=== PATIENT | male | born 1975 | race African-American/Black ===

== ENCOUNTER 2018-03-08 13:28 | Emergency (ER) | payer BC, OTHER ==
--- NOTE | 2018-03-08 13:53 | PDOC ---
Attending Attestation - Resident Resident Name: Brie Rhodes - ED Attending Attestation I have performed the following: I have examined & evaluated the patient, The case was reviewed & discussed with the resident, I agree w/resident's findings & plan, Exceptions are as noted - HPI HPI: 03/08/18 13:50 42 year old male c/ pmh HLD, GERD p/w lower back spasm. Two days ago, was lifting objects and twisting body. Afterwards started to note back spasm worse with movement. Denies fevers, chills, numbness, weakness, urinary or bowel incontinence. Pt came into the ER for an evaluation. - Physicial Exam PE: 03/08/18 13:51 GENERAL: Awake, alert, and fully oriented, in no acute distress HEAD: No signs of trauma EYES: EOMI, sclera anicteric, conjunctiva clear ENT: Auricles normal inspection, hearing grossly normal, nares patentMoist mucosa NECK: Normal ROM, supple BACK: No spinal tenderness or stepoffs. Mild discomfort on left lower back on palpation. EXTREMITIES: Normal range of motion, no edema. No clubbing or cyanosis. No cords, erythema, or tenderness NEUROLOGICAL: Cranial nerves II through XII grossly intact. Normal speech, normal gait SKIN: Warm, Dry, normal turgor, no rashes or lesions noted. - Medical Decision Making 03/08/18 13:52 Vital Signs Temp Pulse Resp BP Pulse Ox 98.6 F 70 16 133/81 98 03/08/18 13:34 03/08/18 13:34 03/08/18 13:34 03/08/18 13:34 03/08/18 13:34 Likely muscle spasm. Pt is requesting only oral medications. Naproxen 500 mg BID PRN 10 mg flexeril q8h PRN Heat Packs, Activity as tolerated. Supportive care Follow up with PMD
[2018-03-08] MEDS ORDERED: NAPROXEN 500 MG TABLET (FP) PO ONE (13:54)
[2018-03-08] MEDS ORDERED: NAPROXEN 500 MG TABLET (FP) ONE (13:57)
--- NOTE | 2018-03-08 13:57 | PDOC ---
History of Present Illness - General Chief Complaint: Back Pain Stated Complaint: LEFT LOWER BACK PAIN Time Seen by Provider: 03/08/18 13:34 History Source: Patient Exam Limitations: No Limitations - History of Present Illness Initial Comments: 03/08/18 13:50 42 year old male with PMH GERD, HLD presents to ED complaining of left lower back pain x2 days. He states he has been moving a lot of boxes at work lately, was doing a twisting motion on Thursday when his back pain began. He states his pain is better laying flat or standing straight up, worse when sitting or bending his back. He denies diabetes, IV drug use, spinal injections, fever, chills, urinary incontinence, bowel incontinence, dysuria, flank pain, hematuria , abdominal pain. PCP - Dr. Navarrete Past History - Past Medical History Allergies/Adverse Reactions: Allergies Allergy/AdvReac Type Severity Reaction Status Date / Time No Known Drug Allergies Allergy Verified 01/03/14 11:07 SHRIMP Allergy Mild Itching Uncoded 01/03/14 11:07 Home Medications: Ambulatory Orders Cetirizine HCl [Zyrtec -] 10 mg PO DAILY 03/08/18 Cyclobenzaprine HCl [Flexeril 10 mg] 10 mg PO TID 7 Days #21 tablet 03/08/18 Naproxen 500 mg PO BID 10 Days #20 tablet 03/08/18 Anemia: No Asthma: No Cancer: No Cardiac Disorders: No CVA: No COPD: No CHF: No Dementia: No Diabetes: No GI Disorders: Yes (GERD) Disorders: No HTN: No Hypercholesterolemia: Yes Liver Disease: No Seizures: No Thyroid Disease: No - Surgical History Abdominal Surgery: No Appendectomy: Yes (1987) Cardiac Surgery: No Cholecystectomy: No Gastric Stapling: Yes (LAP BAND) Lung Surgery: No Neurologic Surgery: No Orthopedic Surgery: No - Immunization History Immunization Up to Date: Yes - Suicide/Smoking/Psychosocial Hx Smoking Status: No Smoking History: Never smoked Number of Cigarettes Smoked Daily: 0 Hx Alcohol Use: No Drug/Substance Use Hx: No Substance Use Type: None Hx Substance Use Treatment: No Review of Systems - Review of Systems Able to Perform ROS?: Yes Comments:: 03/08/18 13:53 General: denies fever, chills, night sweats, generalized weakness. HEENT: denies sore throat, rhinorrhea, ear pain. Heart: denies chest pain, palpitations, syncope, lower extremity swelling. Respiratory: denies shortness of breath, cough, sputum production, hematemesis. Abdomen: denies abdominal pain, nausea, vomiting, diarrhea, constipation, blood in stool. : denies dysuria, urinary frequency, hematuria, urinary incontinence. Back: admits to back pain. denies flank pain. Musculoskeletal: denies joint pain, muscle pain, joint swelling. Neurological: denies headache, dizziness, numbness, tingling, weakness. Skin: denies rash, laceration, abrasion. *Physical Exam - Vital Signs Last Vital Signs Temp Pulse Resp BP Pulse Ox 98.6 F 70 16 133/81 98 03/08/18 13:34 03/08/18 13:34 03/08/18 13:34 03/08/18 13:34 03/08/18 13:34 - Physical Exam Comments: 03/08/18 13:53 Appearance: comfortable. HEENT: head is normocephalic, atraumatic. EOMI. PERRLA. Neck: supple. Full ROM. Heart: regular rhythm. no murmurs, rubs or gallops. Lungs: clear to auscultation bilaterally. no crackles, rhonchi or wheezing. no stridor. Abdomen: soft, nontender. normal bowel sounds. no rebound, guarding, masses. Back: no CVA tenderness. no tenderness to palpation of midline c-spine, t-spine or l-spine. no tenderness to palpation of left lower back. muscle spasm felt at left lower back. Extremities: Peripheral pulses intact. No lower extremity edema. Neurological: Alert. Oriented x3. CN2-12 intact. 4/5 strength left lower extremity secondary to pain. 5/5 strength all other extremities. Full sensation all extremities and bilateral face. Romberg negative. Finger to nose normal. Gait normal. Medical Decision Making - Medical Decision Making 03/08/18 13:55 42 year old male with PMH GERD, HLD presents to ED complaining of back pain x2 days after moving boxes. No systemic symptoms. Denies diabetes, IV drug use, bowel or bladder incontinence, spinal injections, malignancy. Initial Vital Signs Temp Pulse Resp BP Pulse Ox 98.6 F 70 16 133/81 98 03/08/18 13:34 03/08/18 13:34 03/08/18 13:34 03/08/18 13:34 03/08/18 13:34 Afebrile. No hypotension. No hypoxia. Mechanical back pain likely. Naproxen for pain. Pt refused IM Toradol. Pt will be discharged with prescriptions for Naproxen and Flexeril, instructions to follow up with PCP, and strict return precautions. *DC/Admit/Observation/Transfer Diagnosis at time of Disposition: Back pain - Discharge Dispostion Disposition: HOME Condition at time of disposition: Good Decision to Admit order: No - Prescriptions Prescriptions: Cyclobenzaprine HCl [Flexeril 10 mg] 10 mg PO TID 7 Days #21 tablet Naproxen 500 mg PO BID 10 Days #20 tablet - Referrals Referrals: Cristiane Bonner MD [Primary Care Provider] - - Patient Instructions Printed Discharge Instructions: DI for Low Back Pain Additional Instructions: You were seen today for back pain. You were given Naproxen 500 mg, which is an anti-inflammatory medication, it will last 12 hours. I have written a prescription for Naproxen (an anti-inflammatory), and sent it to your pharmacy, please take it every 12 hours. I have written a prescription for Flexeril (a muscle relaxant), and sent it to your pharmacy, please take it every 8 hours. Do not take both ibuprofen and naproxen at the same time. Stay hydrated, drink water. Rest the affected area, no strenuous exercise for 1-2 weeks, or until the pain has subsided. No heavy lifting for 1-2 weeks, or until the pain has subsided. Please follow up with your primary care physician within 5 days, and bring the paperwork given to you today with you. Please return to the Emergency Department if you develop fever, nausea, vomiting , burning with urination, increasing pain, weakness or numbness, urinary or bowel incontinence. Please return to the Emergency Department for any new, worsening or concerning symptoms. - Post Discharge Activity Forms/Work/School Notes: Back to Work
[2018-03-08 14:01] VITALS: BP 133/81; PULSE 70; TEMP 98.6; BMI 38.3
== END 2018-03-08 14:13 | disposition home or self-care (01) ==
LOC: FER 13:28
DX: M54.5 Low back pain (principal); E78.5 Hyperlipidemia, unspecified; K21.9 Gastro-esophageal reflux disease without esophagitis; Z91.013 Allergy to seafood; Z98.84 Bariatric surgery status
CPT/HCPCS: 99282-25

== ENCOUNTER 2018-12-19 10:16 | Emergency (ER) | payer BC, OTHER ==
--- NOTE | 2018-12-19 10:26 | PDOC ---
History of Present Illness - General Chief Complaint: Sore Throat Stated Complaint: SORE THROAT 2 DAYS Time Seen by Provider: 12/19/18 10:26 History Source: Patient Exam Limitations: No Limitations - History of Present Illness Initial Comments: 12/19/18 10:44 HPI 43 YOM with history of GERD and deviated septum/nasal polyps, seasonal allergies presenting with sore throat x 1 day. He started experiencing yesterday left sided neck pain, sore throat and difficulty/painful swallowing. Able to tolerate liquids and solids. He admits to post nasal drip and seasonal allergies, nasal polyps and deviated septum without corrective surgery yet. Has been taking zyrtec daily for allergies. He has tried salt water gargles and warm water, without much relief. Denies fever, chills, visual or hearing changes, chest pain, SOB, palpitation, dizziness, weakness, N, V, D, abdominal pain, rash, He has been with his 2 sons x 1 week, one of which had been feeling under the weather with cough, but otherwise no significant symptoms. No travel. No new changes in medications. No suspicious food intake Allergies: shellfish Past Medical History: as documented in EMR/HPI Social history: Lives with family. No tobacco, ETOH or drug use. Surgical history: appendectomy Meds: as documented in EMR PMD: Kailey Past History - Past Medical History Allergies/Adverse Reactions: Allergies Allergy/AdvReac Type Severity Reaction Status Date / Time No Known Drug Allergies Allergy Mild Verified 12/19/18 10:18 SHRIMP Allergy Mild Itching Uncoded 12/19/18 10:18 Home Medications: Ambulatory Orders Cetirizine HCl [Zyrtec -] 10 mg PO DAILY 03/08/18 Anemia: No Asthma: No Cancer: No Cardiac Disorders: No CVA: No COPD: No CHF: No Dementia: No Diabetes: No GI Disorders: Yes (GERD) Disorders: No HTN: No Hypercholesterolemia: Yes Liver Disease: No Seizures: No Thyroid Disease: No Other medical history: NASAL POLYPS - Surgical History Abdominal Surgery: No Appendectomy: Yes (1987) Cardiac Surgery: No Cholecystectomy: No Gastric Stapling: Yes (LAP BAND) Lung Surgery: No Neurologic Surgery: No Orthopedic Surgery: No - Immunization History Immunization Up to Date: Yes - Suicide/Smoking/Psychosocial Hx Smoking Status: No Smoking History: Never smoked Number of Cigarettes Smoked Daily: 0 Information on smoking cessation initiated: No Hx Alcohol Use: No Drug/Substance Use Hx: No Substance Use Type: None Hx Substance Use Treatment: No Review of Systems - Review of Systems Able to Perform ROS?: Yes Comments:: 12/19/18 10:44 Review of systems Constitutional: no fevers or chills. HEENT: no headache or dizziness. No congestion. No eye pain or redness. No visual/hearing disturbances. +sore throat, +post nasal drip. +odynophagia. CVS: no cp or syncope. Resp: no sob. No cough. Gastrointestinal: no abdominal pain, nausea or vomiting. MUSCULOSKELETAL: No joint pain and swelling. No neck or back pain. SKIN: no redness or skin changes, no discharge, no rash. No wounds. Hematologic: no easy bruising/bleeding. NEUROLOGIC: No headache, dizziness, LOC or altered mental status. No weakness, numbness or tingling. Allergic/Immunologic: +seasonal allergies All other systems reviewed and negative, or as documented in HPI. *Physical Exam - Vital Signs Last Vital Signs Temp Pulse Resp BP Pulse Ox 98.8 F 95 H 16 132/85 98 12/19/18 10:17 12/19/18 10:17 12/19/18 10:17 12/19/18 10:17 12/19/18 10:17 - Physical Exam Comments: 12/19/18 10:45 Physical exam: General: Well appearing, awake and alert, NAD. HEENT: NCAT, PERRL, EOMI, clear conjunctiva, anicteric, moist mucus membranes, dentition normal, no lesions on buccal mucosa. +left soft palate erythema, no exudates. +post nasal drip in posterior oropharynx. Airway patent, normal phonation. Uvula midline. No sinus tenderness, TM clear, no pinna tenderness to manipulation. Neck: neck supple, FROM, no meningismus. +left anterior cervical tenderness, no LAD Resp: CTAB, normal and even respirations, no respiratory distress CVS: RRR, no murmurs, 2+ peripheral pulses throughout, no peripheral edema Abdomen: soft, NTND, no peritoneal signs. Back: nontender, normal inspection and ROM MSK: no edema, WOLF x4, ROM intact. Neuro: alert Skin: warm and well perfused, cap refill <2 sec, normal color Medical Decision Making - Medical Decision Making 12/19/18 10:45 VS reviewed, wnl. no fever, nontoxic. no meningeal signs no systemic toxicity. airway patent, no e/o deep space infection or obstruction. no respiratory distress. analgesia with ibuprofen and dexamethasone strep _neg, f/u cultures. likely PND from allergies vs early viral course supportive care, salt water gargles, hydration and otc analgesia. Pt to be discharged in stable condition. Patient made aware of impression and plan, return precautions discussed (including but not limited to worsening pain or symptoms), fevers, or signs of infection, chest pain, respiratory distress, inability to tolerate oral intake, dehydration, syncope, or neurologic changes) . Follow up with PMD as recommended, follow up information provided, take medications as instructed for duration of time. continue with supportive care, avoid triggers and precipitants. All questions answered to patient's satisfaction and expressed understanding and comfort with this. Patient does not suffer from an acute life-threatening medical condition at this time and is safe for outpatient follow-up. 12/19/18 11:04 *DC/Admit/Observation/Transfer Diagnosis at time of Disposition: Sore throat, Seasonal allergies - Discharge Dispostion Disposition: HOME Condition at time of disposition: Stable Decision to Admit order: No - Referrals Referrals: Cristiane Bonner MD [Primary Care Provider] - - Patient Instructions Printed Discharge Instructions: Sore Throat Additional Instructions: this could be sore throat from post nasal drip from allergies or an early viral infection, which is all treated supportively. salt water gargles and warm lemon tea is appropriate as well for soothing qualities for sore throat/cough/post nasal drip. minimize spread of any possible infection given contagious nature, and cover your mouth and wash your hands adequately with soap and water. Stay well hydrated and rest. Cool air - walk around outdoors in the evening. May also try hot shower steam. This can alleviate the throat discomfort and allergy symptoms. keep taking your zyrtec you received oral steroids which should help with your throat discomfort and inflammation. Please take IBUPROFEN (aka MOTRIN, ADVIL, ALEVE) 400 mg and/or ACETAMINOPHEN ( aka Tylenol) 650-975 mg every 6 hours, as needed, for pain. Please do not take these medications if you have a bleeding disorder, stomach or GI ulcer problems or liver disease. - Post Discharge Activity
[2018-12-19 10:33] VITALS: BP 132/85; PULSE 95; TEMP 98.8; BMI 36.5
[2018-12-19] MEDS ORDERED: DEXAMETHASONE 4 MG TABLET (FP) PO ONE (10:37)
[2018-12-19] MEDS ORDERED: IBUPROFEN 600 MG TABLET (FP) PO ONE ×2 (10:37→10:42)
[2018-12-19] MEDS ORDERED: DEXAMETHASONE 4 MG TABLET (FP) ONE (10:42)
== END 2018-12-19 11:18 | disposition home or self-care (01) ==
LOC: FER 10:16
DX: J30.2 Other seasonal allergic rhinitis (principal); J02.9 Acute pharyngitis, unspecified; K21.9 Gastro-esophageal reflux disease without esophagitis; E78.00 Pure hypercholesterolemia, unspecified; Z98.84 Bariatric surgery status
CPT/HCPCS: 87070; 87880; 99281-25

== ENCOUNTER 2020-02-12 11:59 | Emergency (ER) | payer BC, OTHER ==
[2020-02-12 12:06] VITALS: BP 137/98; PULSE 94; TEMP 98.2; BMI 37.7
--- NOTE | 2020-02-12 12:06 | PDOC ---
History of Present Illness - General Chief Complaint: Pain Stated Complaint: RIGHT ANKLE PAIN Time Seen by Provider: 02/12/20 12:01 History Source: Patient Exam Limitations: No Limitations - History of Present Illness Initial Comments: 02/12/20 12:02 44 y/o male with right ankle pain for a few days, mild swelling and bruising. Patient denies fall or trauma but wants it checked out. No SOB. Treated for COVID in November, developed blood clots in right leg and lungs. Currently on Eliquis. No calf pain. Is this a multiple visit Asthma Patient?: No Past History - Medical History Allergies/Adverse Reactions: Allergies Allergy/AdvReac Type Severity Reaction Status Date / Time shellfish derived Allergy Verified 02/12/20 12:06 shrimp Allergy Verified 02/12/20 12:00 Home Medications: Ambulatory Orders Apixaban [Eliquis] 5 mg PO BID 02/12/20 Anemia: No Asthma: No Cancer: No Cardiac Disorders: No CVA: No COPD: No CHF: No Dementia: No Diabetes: No GI Disorders: Yes (GERD) Disorders: No HTN: No Hypercholesterolemia: Yes Liver Disease: No Seizures: No Thyroid Disease: No - Surgical History Abdominal Surgery: No Appendectomy: Yes (1987) Cardiac Surgery: No Cholecystectomy: No Gastric Stapling: Yes (LAP BAND) Lung Surgery: No Neurologic Surgery: No Orthopedic Surgery: No - Immunization History Immunization Up to Date: Yes - Psycho-Social/Smoking History Smoking Status: No Smoking History: Never smoked Number of Cigarettes Smoked Daily: 0 Review of Systems - Review of Systems Able to Perform ROS?: Yes Is the patient limited Polish proficient: No Constitutional: No: Chills, Fever Respiratory: No: Cough, Shortness of Breath Cardiac (ROS): No: Chest Pain Musculoskeletal: Yes: Joint Pain. No: Muscle Pain All Other Systems: Reviewed and Negative *Physical Exam - Physical Exam General Appearance: Yes: Nourished, Appropriately Dressed. No: Apparent Distress HEENT: positive: EOMI, MINI, Normal ENT Inspection Neck: positive: Trachea midline, Normal Thyroid, Supple. negative: Tender, Rigid Respiratory/Chest: positive: Lungs Clear, Normal Breath Sounds. negative: Chest Tender, Respiratory Distress Cardiovascular: positive: Regular Rhythm, Regular Rate, S1, S2. negative: Edema, JVD, Murmur Vascular Pulses: Femoral (R): 4+, Femoral (L): 4+, Carotid (R): 4+, Carotid (L): 4+, Dorsalis-Pedis (R): 4+, Doralis-Pedis (L): 4+ Lymphatic: negative: Adenopathy, Tenderness, Other Musculoskeletal: positive: Normal Inspection. negative: CVA Tenderness Extremity: positive: Normal Capillary Refill. negative: Normal Inspection (right medical ankle with swelling adn mild ecchymosis no tenderness, full ROM, able to ambulate, pulses 2+/4 b/l in LE, no focal deficits no calf tenderness b/l), Calf Tenderness Integumentary: positive: Normal Color, Dry, Warm Neurologic: positive: adaptive physical educator II-XII NML intact, Fully Oriented, Alert, Normal Mood/Affect, Normal Response, Motor Strength 5/ ED Treatment Course - ADDITIONAL ORDERS Additional order review: 02/12/20 12:05 Right medical ankle pain No sign of DVT, already on Eliquis Will obtain x-ray Pt in agreement with plan 02/12/20 12:27 X-ray right ankle: no fracture seen - RADIOLOGY Radiology Studies Ordered: Category Date Time Status ANKLE-RIGHT [RAD] Stat Radiology 02/12/20 12:01 Ordered Discharge - Discharge Information Problems reviewed: Yes Clinical Impression/Diagnosis: Ankle sprain Qualifiers: Encounter type: initial encounter Involved ligament of ankle: unspecified ligament Laterality: right Qualified Code(s): S93.401A - Sprain of unspecified ligament of right ankle, initial encounter Condition: Stable Disposition: HOME - Admission No - Follow up/Referral Referrals: Cristiane Bonner MD [Primary Care Provider] - - Patient Discharge Instructions Patient Printed Discharge Instructions: DI for Ankle Sprain Additional Instructions: Ice, Tylenol, rest Elevate If worsen return for further imaging study, possible US - Post Discharge Activity
== END 2020-02-12 12:30 | disposition home or self-care (01) ==
LOC: FER 11:59
DX: S93.401A Sprain of unspecified ligament of right ankle, initial encounter (principal)
CPT/HCPCS: 73610-TC-RT-FY; 99284-25

== ENCOUNTER 2020-05-13 12:40 | Emergency (ER) | payer BC, OTHER ==
--- NOTE | 2020-05-13 12:46 | PDOC ---
Attending Attestation - Resident Resident Name: Suzie Meza - ED Attending Attestation I have performed the following: I have examined & evaluated the patient, The case was reviewed & discussed with the resident, I agree w/resident's findings & plan, Exceptions are as noted - HPI HPI: 05/13/20 13:33 45yo male with hx of gerd, hld, nasal polyps, and sciatica and lbp presents for eval of R low back pain that radiates down his R leg. States he has had the pain for about a week. No trauma. No heavy lifting. States he is unsure what set him off. Has been taking tylenol at home without relief along with doing his back stretches. Pt denies red flags: no weakness, no paresthesias, no loss of control of bowel or bladder, no saddle paresthesias. No fevers/chills. No injections. No hx of ivda. States his back flares up about once a year. Denies all other complaints. Ambulated into the ER with a steady gait. - Physicial Exam PE: 05/13/20 13:37 Gen: aaox3, nad heart: +s1s2 reg lungs: cta b/l abd: soft, nt/nd +bs back: no midline c/t/l spine ttp, no stepoffs or deformities, R paraspinal lumbar ttp, ambulates with a steady gait and on toes/heels, sensation intact, pulses intact, +straight leg raise on the RLE ext: no c/c/e, FROM of the knees and hips, muscle strength 5/5 UE and LE, sensation intact, pulses intact - Medical Decision Making 05/13/20 13:41 a/p: 45yo male with hx of sciatica and herniated discs in the lumbar spine with R lbp down the R leg -no paresthesias -no red flags -no fevers, midline pain, ivda hx, weakness, or signs/symptoms of caude equina -will medicate with toradol, robaxin -will monitor and reassess 05/13/20 13:57 pt states still with pain, will add prednisone and lidoderm patch 05/13/20 14:02 pt ambulatory in the Er discussed that it may take more than 1 dose of meds will dc on steroids, anti-inflamm, muscle relaxers -will dc with neurosx and pmd follow up for further eval of his LBP stable for dc to home Discharge - Discharge Information Problems reviewed: Yes Clinical Impression/Diagnosis: Lower back pain Condition: Stable Disposition: HOME - Admission No - Additional Discharge Information Prescriptions: Ibuprofen [Motrin -] 600 mg PO TID PRN #15 tablet PRN Reason: Pain Prednisone [Prednisone 50 MG TABLETS] 50 mg PO DAILY #4 tablet Methocarbamol [Robaxin -] 500 mg PO BID #6 tablet - Follow up/Referral Referrals: Cristiane Bonner MD [Primary Care Provider] - - Patient Discharge Instructions Patient Printed Discharge Instructions: DI for Low Back Pain, DI for Sciatica, DI for Back Pain With Sciatica Additional Instructions: You were seen in the ED today for lower back and sciatic pain. We gave you Toradol and Robaxin for your pain. Home Care: - You may use over the counter medications as needed for pain at home. 650- 1000mg acetaminophen (Tylenol) or 600mg ibuprofen (Motrin or Advil) can be used every 6-8 hours. If needed for continued pain, these medications may be alternated every 3-4 hours. For example, if you take ibuprofen at 9am, you may take acetaminophen at noon, ibuprofen at 3pm, etc. - It is strongly recommended that you take ibuprofen with food to help prevent stomach irritation. If you are taking it for more than a day or two, you may consider taking an acid medication such as Pepcid, available over the counter, to protect your stomach. This should be taken first thing in the morning 30-60 minutes before any food or medications. - You may buy a numbing patch that contains lidocaine (the patch is 4% lidocaine) that can be placed over the areas of greatest pain. The lidocaine patch may be placed for 12 hours then removed for 12 hours. - Try using an ice pack for 20 minutes every hour or a heating pad for additional pain control. These should NOT be used over the lidocaine patch, but you may place them over the areas of pain while the patch is off. Return to the ED with any new or worsening symptoms Return if: You have trouble holding back your urine or bowel movements. You have weakness in both legs. You have numbness in your groin or buttocks. - Post Discharge Activity
--- NOTE | 2020-05-13 12:46 | PDOC ---
History of Present Illness - General Chief Complaint: Back Pain Stated Complaint: SCIATICA Time Seen by Provider: 05/13/20 12:45 - History of Present Illness Initial Comments: 05/13/20 12:45 HPI: This is a 45 y/o male with a PMH of lumbar disk herniations and PE's on Eliquis presenting to the ED due to one week of sharp pain shooting down his right leg. He denies any inciting incident, and states this is typical of his sciatic pain which he has about once a year. He usually manages it with tylenol and stretching and says it usually goes away in a few days. He's coming in today because the pain started getting better and is now getting worse again. He tried tylenol at home which didn't help. Denies urinary incontinence, trouble walking, numbness or tingling in his lower extremities, weakness, fever or drug use. ROS: GENERAL/CONSTITUTIONAL: No fever/chills or weakness. HEENT: No change in vision. No ear pain. No sore throat. CARDIOVASCULAR: No chest pain, palpitations RESPIRATORY: No shortness of breath, dyspnea with exertion GASTROINTESTINAL: No abdominal pain, diarrhea or constipation. GENITOURINARY: No dysuria, frequency, or change in urination. MUSCULOSKELETAL: R. lower back pain radiating down right leg SKIN: No rash or hives NEUROLOGIC: No focal weakness, loss of consciousness, or change in strength/sensation. ENDOCRINE: No increased thirst. No unexplained weight loss. HEMATOLOGIC/LYMPHATIC: No anemia, easy bleeding, Yes history of blood clots PMH: PE's on eliquis, HLD, herniated disks PSx: Denied Social Hx: Denied IV drug use Meds: See nurse note Allergies: See nurse note PE: GENERAL: Awake, alert, and fully oriented, in no acute distress. Sitting in bed. HEAD: Normocephalic, atraumatic. NECK: Normal ROM and supple. CARDIOVASCULAR: Regular rate and rhythm, normal S1 and S2, no murmurs, rubs or gallops PULMONARY: No respiratory distress. Breath sounds equal, clear to auscultation bilaterally. ABDOMEN: Soft, nontender EXTREMITIES: Radicular sharp R. leg pain reproducible with leg raise. BACK: No tenderness to palpation in lumbar spine. Mild tenderness to palpation of R. paraspinal muscles. NEUROLOGICAL: Cranial nerves II through XII grossly intact. Normal speech, normal gait. Strength and sensation intact in bilateral lower extremities. SKIN: Warm, Dry, normal turgor, no rashes or lesions noted. Normal capillary refill. MDM: 05/13/20 13:04 This is a 45 y/o male with a PMH of lumbar disk herniations and PE's on Eliquuis presenting to the ED due to one week of sharp pain shooting down his right leg. - Typical sciatic pain - No red flag symptoms - Denied urinary incontinence, numbness/tingling, abnormal gait - No fever or IV drug use - Normally manages with OTC medications - Will treat pain with 60 mg IM Toradol, 500 mg robaxin in ED 05/13/20 14:00 - Patient reports he is still having pain - Will give 50mg prednisone, lidoderm patch - Will send prednisone, robaxin, motrin to pharmacy - Patient stable for D/c with return precautions and follow-up with neurosurgery Past History - Medical History Allergies/Adverse Reactions: Allergies Allergy/AdvReac Type Severity Reaction Status Date / Time shellfish derived Allergy Verified 02/12/20 12:06 shrimp Allergy Verified 02/12/20 12:00 Home Medications: Ambulatory Orders Apixaban [Eliquis] 5 mg PO BID 02/12/20 Acetaminophen [Tylenol Extra Strength] 1,000 mg PO DAILY PRN 05/13/20 Cetirizine HCl [Zyrtec] 10 mg PO DAILY PRN 05/13/20 Ibuprofen [Motrin -] 600 mg PO TID PRN #15 tablet 05/13/20 Methocarbamol [Robaxin -] 500 mg PO BID #6 tablet 05/13/20 Prednisone [Prednisone 50 MG TABLETS] 50 mg PO DAILY #4 tablet 05/13/20 Anemia: No Asthma: No Cancer: No Cardiac Disorders: No CVA: No COPD: No CHF: No Dementia: No Diabetes: No GI Disorders: Yes (GERD) Disorders: No HTN: No Hypercholesterolemia: Yes Liver Disease: No Seizures: No Thyroid Disease: No - Surgical History Abdominal Surgery: No Appendectomy: Yes (1987) Cardiac Surgery: No Cholecystectomy: No Gastric Stapling: Yes (LAP BAND) Lung Surgery: No Neurologic Surgery: No Orthopedic Surgery: No - Immunization History Immunization Up to Date: Yes - Psycho-Social/Smoking History Smoking Status: No Smoking History: Never smoked Have you smoked in the past 12 months: No Number of Cigarettes Smoked Daily: 0 Discharge - Discharge Information Problems reviewed: Yes Clinical Impression/Diagnosis: Lower back pain Qualifiers: Chronicity: chronic Back pain laterality: right Sciatica presence: with sciatica Sciatica laterality: sciatica of right side Qualified Code(s): M54.41 - Lumbago with sciatica, right side; G89.29 - Other chronic pain Condition: Stable Disposition: HOME - Additional Discharge Information Prescriptions: Ibuprofen [Motrin -] 600 mg PO TID PRN #15 tablet PRN Reason: Pain Prednisone [Prednisone 50 MG TABLETS] 50 mg PO DAILY #4 tablet Methocarbamol [Robaxin -] 500 mg PO BID #6 tablet - Follow up/Referral Referrals: Cristiane Bonner MD [Primary Care Provider] - Bar Elliott MD, FAANS [Staff Physician] - Kishor Lin MD [Staff Physician] - - Patient Discharge Instructions Patient Printed Discharge Instructions: DI for Low Back Pain, DI for Sciatica, DI for Back Pain With Sciatica Additional Instructions: You were seen in the ED today for lower back and sciatic pain. We gave you Toradol and Robaxin for your pain. Home Care: - You may use over the counter medications as needed for pain at home. 650- 1000mg acetaminophen (Tylenol) or 600mg ibuprofen (Motrin or Advil) can be used every 6-8 hours. If needed for continued pain, these medications may be alternated every 3-4 hours. For example, if you take ibuprofen at 9am, you may take acetaminophen at noon, ibuprofen at 3pm, etc. - It is strongly recommended that you take ibuprofen with food to help prevent stomach irritation. If you are taking it for more than a day or two, you may consider taking an acid medication such as Pepcid, available over the counter, to protect your stomach. This should be taken first thing in the morning 30-60 minutes before any food or medications. - You may buy a numbing patch that contains lidocaine (the patch is 4% lidocai ne) that can be placed over the areas of greatest pain. The lidocaine patch may be placed for 12 hours then removed for 12 hours. - Try using an ice pack for 20 minutes every hour or a heating pad for additional pain control. These should NOT be used over the lidocaine patch, but you may place them over the areas of pain while the patch is off. Return to the ED with any new or worsening symptoms Return if: You have trouble holding back your urine or bowel movements. You have weakness in both legs. You have numbness in your groin or buttocks. - Post Discharge Activity
[2020-05-13 12:55] VITALS: BP 107/88; PULSE 85; TEMP 98.6; BMI 37.7
--- OUTSIDE RECORDS SUMMARY | 2020-05-13 12:57 | XMS ---
:1975 Author Organization [facility] Support Name Relationship Address Phone [facility] Unavailable [address] [place] [address] CONSTANTINO CHEN [address] [phone] [place] [address] CONSTANTINO CHEN [address] [place] [place] [address] Re-disclosure Warning The records that you are about to access may contain information from federally- assisted alcohol or drug abuse programs. If such information is present, then the following federally mandated warning applies: This information has been disclosed to you from records protected by federal confidentiality rules (42 CFR part 2). The federal rules prohibit you from making any further disclosure of this information unless further disclosure is expressly permitted by the written consent of the person to whom it pertains or as otherwise permitted by 42 CFR part 2. A general authorization for the release of medical or other information is NOT sufficient for this purpose. The Federal rules restrict any use of the information to criminally investigate or prosecute any alcohol or drug abuse patient.The records that you are about to access may contain highly sensitive health information, the redisclosure of which is protected by Article 27-F of the [facility] Public Health law. If you continue you may haveaccess to information: Regarding HIV / AIDS; Provided by facilities licensed or operated by the [facility] Office of Mental Health; or Provided by the [facility] Office for People With Developmental Disabilities. If such information is present, then the following [facility] mandated warning applies: This information has been disclosed to you from confidential records which are protected by state law. State law prohibits you from making any further disclosure of this information without the specific written consent of the person to whom it pertains, or as otherwise permitted by law. Any unauthorized further disclosure in violation of state law may result in a fine or senior living sentence or both. A general authorization for the release of medical or other information is NOT sufficient authorization for further disclosure. Insurance Providers Payer name Policy type Policy ID Covered Covered libertarian's Policy P evelin / Coverage libertarian ID relationship to [employer] Inf ormation type rocha SELF PAY INSURANCE GHI PPO [id number] SP [id number] GHI PPO [id number] SP [id number] GHI CBP OUTPT [id number] SP [id number] PPO [id number] SP [id number] Results ID Date Data Source [id number] 11/11/2019 12:38:00 PM EDT [facility] Name Value Range Interpretation Code Description Data Bella rce(s) Supporting Document(s ) SARS-CoV-2 [facility] RNA XXX [facility] JANET+probe This lab was ordered by [facility] and reported by [facility]. Procedure
[2020-05-13] MEDS ORDERED: KETOROLAC TROMETHAMINE 60 MG/2 ML VIAL IM ONE (13:24)
[2020-05-13] MEDS ORDERED: METHOCARBAMOL 500 MG TABLET PO ONE (13:24)
[2020-05-13] MEDS ORDERED: predniSONE 20 MG TABLET (UD) PO ONE (13:55)
[2020-05-13] MEDS ORDERED: LIDOCAINE 5% TOPICAL PATCH TP ONE (13:56)
[2020-05-13] MEDS ORDERED: predniSONE 10 MG TABLET (UD) ONE (14:06)
[2020-05-13] MEDS ORDERED: LIDOCAINE 5% TOPICAL PATCH ONE (14:07)
[2020-05-13] MEDS ORDERED: predniSONE 20 MG TABLET (UD) ONE (14:07)
[2020-05-13] MEDS ORDERED: LIDOCAINE PATCH REMOVAL MC SCH (22:00)
== END 2020-05-13 14:17 | disposition home or self-care (01) ==
LOC: FER 12:40
PROC: 3E0233Z Introduction of Anti-inflammatory into Muscle, Percutaneous Approach (ICD-10-PCS; principal; 2020-05-13)
DX: M54.41 Lumbago with sciatica, right side (principal); G89.29 Other chronic pain
CPT/HCPCS: 99284-25

== ENCOUNTER 2022-04-05 12:25 | Emergency (ER) | payer BC ==
[2022-04-05] MEDS ORDERED: predniSONE 20 MG TABLET (UD) PO ONE (13:13)
[2022-04-05 13:14] VITALS: BP 128/83; PULSE 93; RESP 20; TEMP 98.6; BMI 26.7
[2022-04-05] MEDS ORDERED: predniSONE 20 MG TABLET (UD) ONE (13:29)
[2022-04-05] MEDS ORDERED: ACETAMINOPHEN 500 MG TABLET (FP) PO ONE (15:16)
[2022-04-05] MEDS ORDERED: ACETAMINOPHEN 500 MG TABLET (FP) ONE (15:21)
== END 2022-04-05 15:25 | disposition home or self-care (01) ==
LOC: FER 12:25
DX: G51.0 Bell's palsy (principal)
CPT/HCPCS: 70450-TC; 99284-25

== ENCOUNTER 2023-10-20 10:05 | Emergency (ER) | payer BC, OTHER ==
[2023-10-20 10:13] VITALS: BP 122/78; PULSE 68; RESP 18; TEMP 97.7; BMI 33.5
== END 2023-10-20 10:52 | disposition home or self-care (01) ==
LOC: FER 10:05
DX: R42 Dizziness and giddiness (principal); L30.9 Dermatitis, unspecified
CPT/HCPCS: 99283-25